=== PATIENT | female | born 1965 | race Caucasian/White ===

== ENCOUNTER 2023-10-06 13:35 | Emergency (ER) | payer BC ==
[~2023-10-06] VITALS: Ht 160 cm; Wt 81.6 kg
[2023-10-06 14:41] LABS: CALCIUM 8.9 mg/dL (8.5-10.1); CREATININE 1.1 mg/dL (0.6-1.3); POTASSIUM 3.9 mmol/L (3.5-5.1)
[2023-10-06 14:53] LABS: ALBUMIN 3.5 g/dL (3.4-5.0); BILIRUBIN,TOTAL 0.3 mg/dL (0.2-1.0); TOTAL PROTEIN, SERUM 6.7 g/dL (6.4-8.2)
[2023-10-06] MEDS ORDERED: LISI20TA30 PO (15:09)
[2023-10-06 15:27] VITALS: BP 132/75; TEMP 98.3; O2SAT 97
== END 2023-10-06 15:28 | disposition home or self-care (01) ==
LOC: ER 13:35
DX: R60.9 Edema, unspecified (principal); Z79.899 Other long term (current) drug therapy; Z88.5 Allergy status to narcotic agent
CPT/HCPCS: 36415; A4606; A4663